=== PATIENT | female | born 1970 | race Caucasian/White ===

== ENCOUNTER 2019-04-28 20:17 | Emergency (ER) | payer MEDICARE, OTHER ==
[~2019-04-28] VITALS: Ht 172.7 cm; Wt 59.9 kg
--- NOTE | 2019-04-28 20:25 | NUR ---
BIBRA. C/O "ABD PAIN FEW DAYS, +N/V, +CHILLS, +DIARRHEA" -SOB AOX4. VSS. NON-AMBULATORY, pt awake, alert, -sob, nad noted, vss, jennifer ayon
[2019-04-28] MEDS ORDERED: ONDANSETRON HCL/PF 4 MG/2 ML VIAL ONE (20:43)
[2019-04-28 20:54] LABS: BASOPHILS # (AUTO) 0.1 /CMM (0.0-0.2); BASOPHILS % (AUTO) 0.6 % (0.0-2.0); EOSINOPHILS % (AUTO) 1.2 % (0.0-6.0); HEMATOCRIT 40 % (33-45); HEMOGLOBIN 13.2 g/dL (11.5-14.8); LYMPHOCYTES # (AUTO) 1.3 /CMM (0.8-4.8); MEAN CORPUSCULAR HGB CONC 33 g/dl (31.0-36.0); MEAN CORPUSCULAR VOLUME 94 fL (82-100); MONOCYTES # (AUTO) 0.6 /CMM (0.1-1.30); MONOCYTES % (AUTO) 4.7 % (2.0-12.0); NEUTROPHILS # (AUTO) 11.1 /CMM (1.8-8.9); NEUTROPHILS % (AUTO) 83.5 % (43.0-81.0); PLATELET COUNT (AUTO) 285 /CMM (150-450); RED BLOOD CELL COUNT(AUTO) 4.26 MIL/uL (4.0-5.2); WHITE BLOOD COUNT (AUTO) 13.2 K/uL (4.3-11.0)
[2019-04-28] MEDS ORDERED: IV NS 0.9% 1,000 ML BAG IV ONE ×2 (21:00→23:00)
[2019-04-28] MEDS ORDERED: ONDANSETRON HCL/PF 4 MG/2 ML VIAL IVP ONE (21:00)
[2019-04-28 21:32] LABS: ALANINE AMINOTRANSFERASE 25 U/L (12-78); ALBUMIN 4.2 g/dL (3.4-5.0); ALKALINE PHOSPHATASE 80 U/L (46-116); ASPARTATE AMINOTRANSFERASE 18 U/L (15-37); BILIRUBIN,DIRECT 0.1 mg/dL (0.0-0.2); BILIRUBIN,TOTAL 0.2 mg/dL (0.2-1.0); CALCIUM, SERUM 9.2 mg/dL (8.5-10.1); CARBON DIOXIDE 29 mmol/L (21-32); CHLORIDE 103 mmol/L (98-107); CREATININE 0.7 mg/dL (0.6-1.3); GLUCOSE 180 mg/dL (74-106); LIPASE 96 U/L (73-393); POTASSIUM 3.9 mmol/L (3.5-5.1); SODIUM SERUM 140 mmol/L (136-145); TOTAL PROTEIN, SERUM 7.2 g/dL (6.4-8.2); UREA NITROGEN, BLOOD 14 mg/dL (7-18)
[2019-04-28] MEDS ORDERED: IOHEXOL-300 100 ML VIAL IV ONE (21:49)
--- NOTE | 2019-04-28 22:06 | NUR ---
pt to ct at this time
[2019-04-28 22:47] LABS: APPEARANCE,URINE Clear (CLEAR); BILIRUBIN,URINE Negative (NEGATIVE); BLOOD, URINE Negative Ery/uL (NEGATIVE); COLOR,URINE Yellow (YELLOW); KETONES,URINE Negative (NEGATIVE); LEUKOCYTE ESTERASE ,URINE Negative (NEGATIVE); NITRITE, URINE Negative (NEGATIVE); PROTEIN,URINE Negative (NEGATIVE); UGLUCOSE Negative (NEGATIVE); UROBILINOGEN,URINE 0.2 EU/dL (0.2)
--- NOTE | 2019-04-28 23:21 | NUR ---
Patient discharged to home in stable condition. Written and verbal after care instructions given. Patient verbalizes understanding of instruction. IV removed. Catheter intact and site benign. Pressure and 4x4 applied to site. No bleeding noted.
[2019-04-28 23:22] VITALS: BP 134/75
== END 2019-04-28 23:23 | disposition home or self-care (01) ==
LOC: ER 20:19
DX: R10.84 Generalized abdominal pain (principal); R42 Dizziness and giddiness; G35 Multiple sclerosis; I10 Essential (primary) hypertension; G62.9 Polyneuropathy, unspecified
CPT/HCPCS: 36415; 71045; 74177; 80048; 80076; 81001; 83690; 84484; 84703; 85025; 93005; 96361; 96374; 99284; J2405; J7030; Q9967; 81000-TC

== ENCOUNTER 2021-05-03 19:21 | Inpatient (IN) | payer MEDICARE, BC ==
[~2021-05-03] VITALS: Ht 170.2 cm; Wt 64.9 kg
--- NOTE | 2021-05-03 19:42 | NUR ---
SABRINA ([facility]) .
[2021-05-03 20:00] VITALS: BP 114/69
--- NOTE | 2021-05-03 21:05 | NUR ---
[id number] FRM HOME C/O GENERALIZED WEAKNESS AND FEELING "COLD". PLACED ON MONITOR AND ALL V/S STABLE. WILL CONTINUE TO MONITOR.
[2021-05-03] MEDS ORDERED: IV NS 0.9% 1,000 ML BAG IV ONE ×2 (21:30→22:30)
[2021-05-03 21:39] LABS: BASOPHILS % (AUTO) 0.3 % (0.0-2.0); EOSINOPHILS % (AUTO) 0.1 % (0.0-6.0); HEMATOCRIT 42 % (33-45); HEMOGLOBIN 14.1 g/dL (11.5-14.8); LYMPHOCYTES # (AUTO) 0.9 K/uL (0.8-4.8); LYMPHOCYTES % (AUTO) 7.1 % (20.0-44.0); MEAN CORPUSCULAR HGB CONC 33 g/dl (31.0-36.0); MEAN CORPUSCULAR VOLUME 97 fL (82-100); MONOCYTES # (AUTO) 0.7 K/uL (0.1-1.30); MONOCYTES % (AUTO) 5.1 % (2.0-12.0); NEUTROPHILS # (AUTO) 11.5 K/uL (1.8-8.9); NEUTROPHILS % (AUTO) 87.4 % (43.0-81.0); PLATELET COUNT (AUTO) 275 K/uL (150-450); RED BLOOD CELL COUNT(AUTO) 4.35 MIL/uL (4.0-5.2); WHITE BLOOD COUNT (AUTO) 13.2 K/uL (4.3-11.0)
[2021-05-03 21:55] LABS: CALCIUM, SERUM 9.5 mg/dL (8.5-10.1); CARBON DIOXIDE 30 mmol/L (21-32); CHLORIDE 99 mmol/L (98-107); CREATININE 0.7 mg/dL (0.6-1.3); GLUCOSE 110 mg/dL (74-106); POTASSIUM 3.8 mmol/L (3.5-5.1); SODIUM SERUM 137 mmol/L (136-145); UREA NITROGEN, BLOOD 8 mg/dL (7-18)
--- NOTE | 2021-05-03 22:05 | NUR ---
LACTIC ACID 2.8
[2021-05-03 22:08] LABS: ALANINE AMINOTRANSFERASE 35 U/L (12-78); ALBUMIN 4.2 g/dL (3.4-5.0); ALKALINE PHOSPHATASE 83 U/L (46-116); ASPARTATE AMINOTRANSFERASE 28 U/L (15-37); BILIRUBIN,DIRECT 0.1 mg/dL (0.0-0.2); BILIRUBIN,TOTAL 0.3 mg/dL (0.2-1.0); TOTAL PROTEIN, SERUM 7.6 g/dL (6.4-8.2)
[2021-05-03] MEDS ORDERED: PIPERACILLIN /TAZOBACTAM 3.375 G in IV D5W 50 ML IV ONE (22:30)
[2021-05-03] MEDS ORDERED: ACETAMINOPHEN 325 MG TABLET PO PRN (22:30)
[2021-05-03] MEDS ORDERED: ONDANSETRON HCL/PF 4 MG/2 ML VIAL IVP PRN (22:30)
[2021-05-03] MEDS ORDERED: Z GUARD REMEDY 2 OZ OINT TP PRN (22:30)
[2021-05-03] MEDS ORDERED: MAGNESIUM HYDROXIDE 30 ML UDC PO PRN (22:30)
[2021-05-03] MEDS ORDERED: MAG HYDROX/AL HYDROX/SIMETH 30 ML UDC PO PRN (22:30)
--- NOTE | 2021-05-03 22:31 | NUR ---
MRSA SWAB COLLECTED AND SENT TO LAB. PATIENT'S BELONGINGS LIST DONE.
[2021-05-03] MEDS ORDERED: PIPERACILLIN /TAZOBACTAM 3.375 G VIAL IV ONE (22:40)
[2021-05-03] MEDS ORDERED: VANCOMYCIN 1.25 GM in IV D5W 250 ML IV ONE (23:00)
[2021-05-03] MEDS ORDERED: GABA800T11 PO (23:09)
[2021-05-03] MEDS ORDERED: BACL20TA PO (23:10)
[2021-05-03] MEDS ORDERED: CLON1TAB12 PO (23:10)
[2021-05-03] MEDS ORDERED: ESCI20TA PO (23:11)
[2021-05-04] MEDS ORDERED: clonazePAM 1 MG TABLET ONE (01:22)
[2021-05-04] MEDS: clonazePAM 1 MG TABLET PO SCH ×2 (01:28→22:16)
[2021-05-04] MEDS ORDERED: ENOXAPARIN SODIUM 40 MG/0.4 ML DISP.SYRIN SQ ONE (01:31)
[2021-05-04] MEDS ORDERED: VANCOMYCIN 1 GM VIAL ONE (01:33)
[2021-05-04] MEDS ORDERED: VANCOMYCIN 500 MG VIAL ONE (01:33)
[2021-05-04] MEDS: ENOXAPARIN SODIUM 40 MG/0.4 ML DISP.SYRIN SQ SCH ×2 (01:53→22:06)
--- NOTE | 2021-05-04 02:02 | NUR ---
REPORT GIVEN TO PUSHPA ON THIRD FLOOR
[2021-05-04 02:06] LABS: BILIRUBIN,URINE NEGATIVE (NEGATIVE); COLOR,URINE LIGHT YELLOW (YELLOW); LEUKOCYTE ESTERASE ,URINE NEGATIVE (NEGATIVE); NITRITE, URINE NEGATIVE (NEGATIVE); PROTEIN,URINE NEGATIVE (NEGATIVE); UGLUCOSE NEGATIVE (NEGATIVE); UROBILINOGEN,URINE 0.2 EU/dL (0.2)
--- NOTE | 2021-05-04 02:08 | NUR ---
PT WAS TRANSFERRED TO [facility] UNDER ACLS
[2021-05-04 02:15] VITALS: BP 112/69
[2021-05-04] MEDS: IV NS 0.9% 1,000 ML IV PRN ×2 (02:52→19:24)
--- NOTE | 2021-05-04 03:20 | NUR ---
Patient arrived to unit at 0215 via gurney accompanied by ER staff. Patient is A&Ox4. Only able to make slight adjustments in position d/t MS. Initial VS 112/69, hr 78, temp 99.1, O2 95%, rr 17. Denies pain or discomfort. skin intact. Lung sounds clear, heart rate and rhythm regular, bowel sounds normoactive x4 quadrants. Patient reports chills have subsided and is now warm but prefers warm blankets. Pt. wishes to be full code. Reports BM 05/03 brown and soft. Urinated on unit via bedpan with staff assist -clear and yellow urine. Pt. requests flu shot prior to d/c. Patient oriented to staff, unit protocols, call light, and bed controls.
--- NOTE | 2021-05-04 03:35 | NUR ---
per on-call provider PRN Gabapentin is for insomnia. Also, first dose of baclofen 20mg can be given now since pt. did not receive any since AM. Per pharmacy 1st dose at 0900 will then be skipped. and resume with schedule at 1300. Addendum: 05/04/21 at 0411 by PIEDAD AQUINO RN pt. states she will just take baclofen at 0900 when due.
[2021-05-04] MEDS ORDERED: BACLOFEN (10 MG) 10 MG TABLET PO SCH ×3 (04:00→22:00)
[2021-05-04] MEDS ORDERED: PIPERACILLIN /TAZOBACTAM 3.375 G in IV D5W 50 ML IV ONE (05:00)
--- NOTE | 2021-05-04 06:43 | NUR ---
MS RN CLOSING NOTES Patient has been stable overnight. No chills. VSS. Tolerating IV ABX well.
[2021-05-04 06:52] LABS: BASOPHILS # (AUTO) 0.1 K/uL (0.0-0.2); BASOPHILS % (AUTO) 1.2 % (0.0-2.0); EOSINOPHILS % (AUTO) 0.6 % (0.0-6.0); HEMATOCRIT 37 % (33-45); HEMOGLOBIN 12.6 g/dL (11.5-14.8); LYMPHOCYTES # (AUTO) 1.3 K/uL (0.8-4.8); LYMPHOCYTES % (AUTO) 27.7 % (20.0-44.0); MEAN CORPUSCULAR HGB CONC 34 g/dl (31.0-36.0); MEAN CORPUSCULAR VOLUME 97 fL (82-100); MONOCYTES # (AUTO) 0.4 K/uL (0.1-1.30); MONOCYTES % (AUTO) 9.6 % (2.0-12.0); NEUTROPHILS # (AUTO) 2.9 K/uL (1.8-8.9); NEUTROPHILS % (AUTO) 60.9 % (43.0-81.0); PLATELET COUNT (AUTO) 232 K/uL (150-450); RED BLOOD CELL COUNT(AUTO) 3.78 MIL/uL (4.0-5.2); WHITE BLOOD COUNT (AUTO) 4.7 K/uL (4.3-11.0)
[2021-05-04] MEDS ORDERED: PIPERACILLIN /TAZOBACTAM 3.375 G VIAL IV ONE (06:57)
[2021-05-04 07:31] LABS: CREATININE 0.6 mg/dL (0.6-1.3); MAGNESIUM 2.3 mg/dL (1.8-2.4); PHOSPHORUS 4.1 mg/dL (2.5-4.9); POTASSIUM 3.6 mmol/L (3.5-5.1)
--- NOTE | 2021-05-04 07:37 | NUR ---
RN OPENING NOTES Patient seen comfortably lying in bed, no apparent distress noted, respirations even and unlabored, no SOB, denies any pain or discomfort at this time, no grimacing. Call light left within reach, safety precautions in place, brakes locked, side rails up X 2, will monitor closely for any changes.
[2021-05-04 08:00] VITALS: BP 106/67
[2021-05-04 08:22] LABS: THYROID STIMULATING HORMONE 2.433 uIU/mL (0.358-3.74)
[2021-05-04] MEDS: BACLOFEN (10 MG) 10 MG TABLET PO SCH ×3 (08:29→16:38)
[2021-05-04] MEDS: ESCITALOPRAM OXALATE (10 MG) 10 MG TABLET PO SCH (08:29)
[2021-05-04] MEDS: PANTOPRAZOLE 40 MG TABLET.DR PO SCH (08:29)
[2021-05-04] MEDS: PIPERACILLIN /TAZOBACTAM 3.375 G in IV D5W 50 ML IV SCH ×2 (11:58→17:01)
[2021-05-04] MEDS: VANCOMYCIN 1 GM in IV D5W 250ml IV SCH (14:47)
[2021-05-04 16:00] VITALS: BP 100/65
--- NOTE | 2021-05-04 18:21 | NUR ---
RN CLOSING NOTES Patient lying in bed, no SOB, respirations even and unlabored, denies any pain or discomfort, no grimacing, no dizziness, no palpitations, no apparent distress noted. All medications given per MD order, tolerating well. All needs anticipated, kept clean and dry, call light left within reach, safety precautions in place, brakes locked, side rails up X 2, will endorse to next shift for continuity of care.
--- NOTE | 2021-05-04 19:10 | NUR ---
MS RN OPENING NOTES: RECEIVED PATIENT IN BED, AWAKE, A/O X4, NO S/S OF DISTRESS NOTED. NO COMPLAIN OF PAIN. CALL LIGHT WITHIN REACH. BED ALARM ON. BED IN LOWEST AND LOCKED POSITION. CALL LIGHT WITHIN REACH. BEDREST.RESTING COMFORTABLY.
[2021-05-04 20:00] VITALS: BP 114/69
[2021-05-04] MEDS ORDERED: GABAPENTIN 400 MG CAPSULE PO PRN (22:00)
[2021-05-05] MEDS: PIPERACILLIN /TAZOBACTAM 3.375 G in IV D5W 50 ML IV SCH ×2 (00:27→06:21)
[2021-05-05 01:24] VITALS: BP 114/69
[2021-05-05] MEDS: VANCOMYCIN 1 GM in IV D5W 250ml IV SCH (02:04)
[2021-05-05 06:33] LABS: BASOPHILS % (AUTO) 0.9 % (0.0-2.0); HEMATOCRIT 38 % (33-45); HEMOGLOBIN 12.8 g/dL (11.5-14.8); LYMPHOCYTES # (AUTO) 1.1 K/uL (0.8-4.8); LYMPHOCYTES % (AUTO) 26.7 % (20.0-44.0); MEAN CORPUSCULAR HGB CONC 34 g/dl (31.0-36.0); MEAN CORPUSCULAR VOLUME 98 fL (82-100); MONOCYTES # (AUTO) 0.5 K/uL (0.1-1.30); MONOCYTES % (AUTO) 12.3 % (2.0-12.0); NEUTROPHILS # (AUTO) 2.2 K/uL (1.8-8.9); NEUTROPHILS % (AUTO) 56.1 % (43.0-81.0); PLATELET COUNT (AUTO) 229 K/uL (150-450); RED BLOOD CELL COUNT(AUTO) 3.91 MIL/uL (4.0-5.2)
[2021-05-05 06:52] LABS: BILIRUBIN,TOTAL 0.3 mg/dL (0.2-1.0); CALCIUM, SERUM 8.3 mg/dL (8.5-10.1); CREATININE 0.6 mg/dL (0.6-1.3); MAGNESIUM 2.3 mg/dL (1.8-2.4); POTASSIUM 3.6 mmol/L (3.5-5.1); TOTAL PROTEIN, SERUM 5.7 g/dL (6.4-8.2)
[2021-05-05 08:00] VITALS: BP 102/68
--- NOTE | 2021-05-05 08:40 | NUR ---
RN NOTES PATIENT SEEN BY DR. SHAH; MADE AWARE OF PLAN OF CARE.
[2021-05-05] MEDS: ESCITALOPRAM OXALATE (10 MG) 10 MG TABLET PO SCH (08:58)
[2021-05-05] MEDS: PANTOPRAZOLE 40 MG TABLET.DR PO SCH (08:58)
[2021-05-05] MEDS ORDERED: BACLOFEN (10 MG) 10 MG TABLET PO SCH (09:00)
[2021-05-05] MEDS ORDERED: INFLUENZA VACCINE 2021-22 0.5 ML DISP.SYRIN IM ONE (09:00)
--- NOTE | 2021-05-05 10:42 | NUR ---
RN NOTES PATIENT SEEN BY DR. SHAH TODAY W/ ORDER FOR D/C TO HOME. DISCHARGE INSTRUCTION AND EDUCATION PROVIDED TO PATIENT. DISCHARGE FOR RYANNE BELONGINGS LIST FORM SIGNED BY PATIENT AND ALL BELONGINGS ACCOUNTED FOR. NO SKIN ISSUES NOTED. NAME ARMBAND AND IV LINE REMOVED, NO BLEEDING NOTED. PATIENT HAS FUNCTIONAL QUADRIPLEGIA AND ASSISTED W/ ADL. FLU VACCINE GIVEN PER REQUEST. SABRINA, , AT BEDSIDE TO ASSIST THE PATIENT AND ACCOMPANY TO THE LOBBY. CHARGE NURSE AND MD AWARE OF DISCHARGE.
== END 2021-05-05 10:35 | disposition home health service (06) | DRG 885 ==
LOC: ER 19:23 → MED 05-04 01:46
PROVIDERS: ADMIT Registered Nurse; ATTEND Family Medicine
DX: F29 Unspecified psychosis not due to a substance or known physiological condition (principal); G93.41 Metabolic encephalopathy; R53.2 Functional quadriplegia; E87.2 Acidosis; E44.1 Mild protein-calorie malnutrition; R29.818 Other symptoms and signs involving the nervous system; G35 Multiple sclerosis; Z20.822 Contact with and (suspected) exposure to COVID-19; I10 Essential (primary) hypertension; G62.9 Polyneuropathy, unspecified; G89.4 Chronic pain syndrome
CPT/HCPCS: 36415; 71045-TC; 80048-TC; 80053-TC; 80076-TC; 83605-TC; 83735-TC; 84100-TC; 84443-TC; 84484-TC; 85025-TC; 87040-TC; 87081-TC; 87086-TC; C9803; G0378; J1650; J2543; J3370; J7030; J7060; Q2036